=== PATIENT | female | born 1990 | race Caucasian/White ===

== ENCOUNTER 2023-03-17 10:42 | Emergency (ER) | payer OTHER ==
[2023-03-17] MEDS ORDERED: HYDROcodone/Acetaminophen 5/325 mg Tablet ONE ×2 (11:23→12:31)
[2023-03-17] MEDS ORDERED: Ibuprofen 200 MG TAB ONE (11:24)
[2023-03-17] MEDS ORDERED: predniSONE 20 MG TAB ONE (11:24)
== END 2023-03-17 13:45 | disposition home or self-care (01) ==
LOC: CSHERS 10:42
DX: M54.50 Low back pain, unspecified (principal)
CPT/HCPCS: 99283; J7512

== ENCOUNTER 2024-03-07 19:40 | Emergency (ER) | payer OTHER | END 2024-03-07 20:36 | disposition home or self-care (01) | LOC: CSHERS 19:40 | DX: O20.0 Threatened abortion (principal); Z3A.01 Less than 8 weeks gestation of pregnancy | CPT/HCPCS: 76801 ==